=== PATIENT | male | born 2000 | race Caucasian/White ===

== ENCOUNTER 2022-01-11 19:24 | Emergency (ER) | payer BC, SELFPAY ==
[2022-01-11 19:32] VITALS: BP 127/85; PULSE 106; RESP 20; TEMP 37.7; O2SAT 98; BMI 23.7
[2022-01-11 19:58] LABS: IDNOW Serial# 16C4AD1C
[2022-01-11 19:59] LABS: COVID-19 Test Positive (Negative)
--- OUTSIDE RECORDS SUMMARY | 2022-01-11 21:18 | XMS_ITS | Continuity of Care Document ---
:2000 Author Organization [facility] Address [address] [id number]- Care Team Providers Name Role Phone Wojciech Soto MD Primary Care Physician Encounter [facility] NBR [phone] Date(s): 08/08/21 - 08/15/21 [facility] [address] [place] [address]- Encounter Diagnosis Encounter to establish care (Discharge Diagnosis) - 08/08/21 ADHD (Discharge Diagnosis) - 08/08/21 Attending Physician: Faisal Santana MD Allergies, Adverse Reactions, Alerts No Known Medication Allergies Medications Adderall XR 20 mg oral capsule, extended release TAKE 1 CAPSULE BY MOUTH EVERY DAY IN THE MORNING Start Date: 08/08/21 Status: Ordered Problem List Diagnosis Diagnosis Type Effective Dates Health Status Clinical In formant Service ADHD Discharge 08/08/21 Diagnosis Encounter to Discharge 08/08/21 establish care Diagnosis Vital Signs Most recent to oldest [Reference Range]: 1 Height 186 cm (08/08/21 1:12 PM) Weight 83.1 kg (08/08/21 1:12 PM) Oxygen Saturation [94-100 %] 98 % (08/08/21 1:12 PM) Pulse Rate [55-90 bpm] 94 bpm *H* (08/08/21 1:12 PM) Body Mass Index [18.5-24.99] 24.02 (08/08/21 1:12 PM) Blood Pressure [90-138/55-84 mm Hg] 120/74 mm Hg (08/08/21 1:12 PM) Liters per Minute 0 L/min (08/08/21 1:12 PM) Mode of Delivery (Oxygen) Room air (08/08/21 1:12 PM) Blood pressure sites Arm, left (08/08/21 1:12 PM) Weight Obtained Via Standing scale (08/08/21 1:12 PM) Social History Social History Type Response Tobacco Use: 4 or less cigarettes(le ss than 1/4 pack)/day in last 30 days. Other: close to never but social smoker. Sex
--- OUTSIDE RECORDS SUMMARY | 2022-01-11 21:18 | XMS_ITS | Continuity of Care Document ---
:[address] [facility] Address [address] [place] [address]- Care Team Providers Name Role Phone Faisal Santana MD Primary Care Physician Encounter [facility] Date(s): 08/30/21 - 09/29/21 [facility] [address] [place] [address]- [place] Allergies, Adverse Reactions, Alerts No Known Medication Allergies Medications Adderall XR 20 mg oral capsule, extended release TAKE 1 CAPSULE BY MOUTH EVERY DAY IN THE MORNING Start Date: 08/08/21 Status: Ordered Social History Social History Type Response Tobacco Use: 4 or less cigarettes(le ss than 1/4 pack)/day in last 30 days. Other: close to never but social smoker. Sex
--- OUTSIDE RECORDS SUMMARY | 2022-01-11 21:18 | XMS_ITS | Continuity of Care Document ---
:2000 Author Organization [facility] Address [address] [place] [address]- Care Team Providers Name Role Phone Wojciech Soto MD Primary Care Physician Encounter [facility] Date(s): 05/24/21 - 06/23/21 [facility] [address] [place] [phone]-
--- NOTE | 2022-01-11 21:20 | ED.URI ---
HPI - URI/Sore Throat General Chief Complaint: Upper Respiratory Symptoms Stated Complaint: Flu like symptoms Time Seen by Provider: 01/11/22 20:56 Source: patient Mode of arrival: ambulatory Limitations: no limitations History of Present Illness HPI Narrative: 21-year-old male with no significant medical history presenting to the emergency department requesting a school note, patient tells me he tested positive for COVID at home. Patient reports that for the past week or 2 he has been having fatigue, malaise, body aches and pains, intermittent fevers and productive cough. Patient tells me it has been slightly improving over the past few days. Has been eating and drinking without difficulties. Denies chest pain, shortness of breath, nausea, vomiting, abdominal pain, headache, vision changes and weakness. Patient is not a smoker, no history of blood clots. Up-to-date on immunizations patient has his COVID vaccine P Pfizer x2. He tells me is currently in college in there are multiple sick contacts. Review of Systems Review of Systems: Constitutional : No Weight loss, No Fever, No Chills, + Fatigue, + Malaise ENT/Mouth : No sore throat, No Rhinorrhea Eyes: No Eye Pain, No Swelling, No Redness Cardiovascular : No Chest Pain, No SOB, No Dyspnea on Exertion, No Orthopnea, No Edema, No Palpitations Respiratory : No Cough, No Sputum, No Wheezing Gastrointestinal : No Nausea, No Vomiting, No Diarrhea, No Constipation, No abdominal Pain, No Hematochezia, No Melena Genitourinary : No Dysuria, No Urinary Frequency, No Hematuria, Musculoskeletal : No joint pain, No Myalgias, No Joint Swelling Skin : No Skin Lesions, No rash Neuro : No Weakness, No Numbness, No Dizziness, No Headache Psych : No Anxiety/Panic, No Depression All other systems reviewed and are negative Yes all other systems are reviewed and are negative [facility] Past Medical History Attestation statement: The following information was validated with the patient. Source: old records reviewed and nursing notes reviewed Social History Social History Advance Directives: No Advance Directives Information Provided: No Physical Exam Vital Signs: Vital Signs: Last Vital Signs Temp 99.8 F 01/11/22 19:32 Pulse 106 H 01/11/22 19:32 Resp 20 10/22/22 19:32 BP 127/85 01/11/22 19:32 Pulse Ox 98 01/11/22 19:32 O2 Del Method 01/11/22 19:32 BMI result Body Mass Index 23.7 Vital signs stable Appearance: Alert.? Oriented X3.? No acute distress.? Head: Normocephalic, atraumatic, no step-offs or deformities Eyes: Pupils equal, round and reactive to light.? CVS: Normal heart rate and rhythm.? Pulses normal.? Respiratory: No respiratory distress.? Breath sounds normal.? Abdomen: Soft and nontender.? Skin: Skin warm and dry.? Normal skin color.? Normal skin turgor.? Extremities: No lower extremity edema.? No calf ttp, negative Silverio. 5/5 strength to bilateral upper and lower extremities Neuro: Oriented X 3.? No motor deficit.? No sensory deficit. CN 2-12 intact Course Reevaluation(s) Reevaluation #1: Patient noted to be COVID positive. Educated him on CDC guidelines, outlined them on his discharge. At this time patient will be discharged home, at time of discharge patient hemodynamically stable appears well no acute distress. Tells me he is feeling. Comfortable discharge home Time: 21:27 MDM - URI/Sore Throat MDM Narrative Medical decision making narrative: 2125 21-year-old male presents with an at home positive COVID test requesting a school note. Tells me symptoms have been going on for a week or 2. Denies any chest pain or shortness of breath at this time Physical examination benign. Lungs clear. Regular rate and rhythm. Neuro nonfocal. Abdomen soft nontender nondistended. Negative Silverio bilaterally. Likely symptoms secondary to COVID-19. I do not suspect PE or pneumonia on this patient. I did offer him a chest x-ray however he refused. He tells me he is really only here just for a school note. Plan at this time is COVID test Medical Records Attestation: I reviewed the patient's medical records. Lab Data Attestation: I reviewed the patient's lab results. Labs: Lab Results 01/11/22 Range/Units 19:36 COVID-19 ([facility]) Positive A (Negative) COVID-19 Clin Com See Note Critical Care Time Critical Care Time Critical Care Time: No Discharge Plan Discharge Clinical Impression: COVID-19 Patient Disposition: Home, Self-Care Instructions: COVID-19 (Coronavirus Disease 2019) (ED) Additional Instructions: Take your medications as prescribed. If you were prescribed antibiotics today, it is important that you take your medication to their entirety, do not skip any doses, do not finish them early. Today you tested positive for COVID-19. Take Ibuprofen or Tylenol as needed for fevers or body aches. Quarantine for 5 days and ensure you wear a mask. After 5 days you should wear a mask for 5 days after that. Practice social distancing and good hand hygiene. Drink plenty of fluids. Follow-up with your primary care provider this week. Return to the emergency department with new or worsening symptoms. In case of emergency call 911 You are out of the window for the new medication called claudiolovid. You can purchase a pulse oximeter from your local pharmacy or grocery store, and monitor your oxygen saturation if it goes below 94% you should return to the emergency department for further evaluation. Referrals: Wojciech Soto MD [Primary Care Provider] - 2 days Stand Alone Forms: Work/School Release
== END 2022-01-11 21:39 | disposition home or self-care (01) ==
PROVIDERS: Emergency Provider Emergency Medicine; PCP Pediatrics
DX: U07.1 COVID-19 (principal); R50.9 Fever, unspecified
CPT/HCPCS: 87635; 99282; 99283